=== PATIENT | male | born 1990 | race Caucasian/White ===

== ENCOUNTER 2021-01-01 09:12 | Outpatient (REF) | payer OTHER, SELFPAY | END 2021-01-01 09:13 | disposition home or self-care (01) | LOC: HO.LAB 09:12 | PROVIDERS: Visit Provider Internal Medicine | DX: Z20.822 Contact with and (suspected) exposure to COVID-19 (principal) | CPT/HCPCS: C9803; U0003; U0005 ==

== ENCOUNTER 2021-01-15 12:05 | Outpatient (REF) | payer OTHER, SELFPAY ==
[2021-01-15 12:58] LABS: COVID-19 Test Negative (Negative)
== END 2021-01-15 12:06 | disposition home or self-care (01) ==
LOC: HO.LAB 12:05
PROVIDERS: Visit Provider Internal Medicine
DX: Z20.822 Contact with and (suspected) exposure to COVID-19 (principal)
CPT/HCPCS: 36415; 87635; C9803

== ENCOUNTER 2025-03-03 07:46 | Emergency (ER) | payer SELFPAY ==
[2025-03-03 07:55] VITALS: BP 104/51; PULSE 55; RESP 18; TEMP 36.4; O2SAT 99; BMI 23.6
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
--- NOTE | 2025-03-03 08:41 | ED_ITS ---
HPI - Wound/Laceration General Chief Complaint: Wound/Laceration Stated Complaint: hand lac washing dishes Time Seen by Provider: 03/03/25 08:02 Source: patient Mode of arrival: ambulatory Limitations: no limitations History of Present Illness ED Provider: MINESH TIDWELL PA-C HPI narrative: 34 year old right hand dominant male with no PMHx presenting to the ED today after sustaining a laceration to his right hand this morning [employer] WORK[employer] in ED. He reports cutting his hand on a large piece of glass while washing the fishes. Immediately washed the laceration out. Does not believe there is any retained glass. He was able to control the bleeding and came to the ED for further evaluation. Reports minimal pain. No other complaints/ concerns. He does not believe his tetanus is UTD. Related Data Allergies Allergy/AdvReac Type Severity Reaction Status Date / Time No Known Allergies Allergy Verified 03/03/25 07:56 Review of Systems Review of Systems: Yes all other systems are reviewed and are negative PMFSH Past Medical History Attestation statement: The following information was validated with the patient. Source: old records reviewed and nursing notes reviewed Social History Social History Advance Directives: No Advance Directives Information Provided: No Do you have a plan to hurt others: No Plan Physical Exam Vital Signs: Vital Signs: Last Vital Signs Temp 97.6 F 03/03/25 07:55 Pulse 55 03/03/25 07:55 Resp 18 03/03/25 07:55 BP 104/51 L 03/03/25 07:55 Pulse Ox 99 03/03/25 07:55 O2 Del Method Room Air 03/03/25 07:55 BMI result Body Mass Index 23.6 vital signs stable General: Well appearing, in no acute distress. Skin: Warm, dry, intact. No rashes or lesions. Head: Normocephalic, atraumatic. EENT: Hearing is intact b/l. Conjunctiva clear. Sclera is anicteric. PERRLA. EOM intact. Moist mucous membranes.? Cardiac: Chest wall symmetric. RRR Lungs: Normal respiratory effort without accessory muscle use. CTA bilaterally Ext: +superficial U shaped laceration noted to ulnar aspect of right hand at 5th mcp. No active bleeding. No retained glass. No involvement of deeper structures. Finger strength intact. physician primary care sports medicine strength intact. Ecuqwv-su-[id number] opposition intact. Full ROM intact to right 5th MCP, PIP and DIP. 2+radial and ulnar pulse intact. Neuro: AOx3. Normal speech. Ambulating with steady gait. Course Course Course Narrative: Laceration thoroughly cleansed with saline and iodine. There is no retained gl ass noted to laceration. I am not concerned about a ligament or tendon injury. I obtained verbal consent from patient for local anesthetic and suture repair. He is declining Tdap at this time. Laceration repaired with 4 3-0 sutures following lidocaine injection. see procedure note. patient tolerated well. advised to return for suture removal. Patient has remained stable throughout ED visit today. Discussed worrisome signs and symptoms and when to return to the ED. All questions answered at this time. Patient is agreeable with disposition and stable for discharge. Medications Administered Discontinued Medications Generic Name Dose Route Start Last Admin Trade Name Freq PRN Reason Stop Dose Admin Lidocaine HCl 10 ml 03/03/25 08:45 03/03/25 09:03 Lidocaine Hcl 1 % Mpf 5 Ml Vial INFILTRATI 03/03/25 08:46 5 ml ONCE ONE Administration Medical Decision Making Medical Decision Making MDM Narrative: 34 year old right hand dominant male with no PMHx presenting to the ED today after sustaining a laceration to his right hand this morning [employer] WORK[employer] in ED. Vitals are stable, he is well-appearing and in no acute distress. On exam of right hand, there is a superficial U shaped laceration noted to ulnar aspect of right hand at 5th mcp. No active bleeding. No retained glass. No involvement of deeper structures. Finger strength intact. physician primary care sports medicine strength intact. Xkopda-xn-ibjzj opposition intact. Full ROM intact to right 5th MCP, PIP and DIP. 2+radial and ulnar pulse intact. Differential diagnosis includes abrasion, laceration. Unlikely fracture, retained glass, ligament/tendon injury. Plan for laceration repair and disposition. Patient is declining tdap today. Risks discussed - patient verbalizzes understanding. Differential Diagnosis Differential Diagnoses: The differential diagnosis associated with the presentation includes as above. Admission/Observation not indicated. External Record Review External record reviewed: Inpatient record Prescription Management I considered prescription management with: Pain Medication Social Determinants Patient?s care significantly limited by Social Determinants of Health including: Other Social Determinant of Health Procedures Laceration Laceration 1: Site: hand Side (If applicable): right Size (cm): 2 Description: other (u-shaped) Depth: simple, single layer Local Anesthetic: lidocaine 1% Amount of anesthesia used (mL): 5 Pre-repair: wound explored, irrigated extensively and deep structures intact Skin layer closed with: nylon Size (cm): 3-0 Number of sutures: 4 Technique: simple, interrupted Critical Care Time Critical Care Time Critical Care Time: No Discharge Plan Discharge Clinical Impression: Laceration of right hand Patient Disposition: Home, Self-Care Instructions: Laceration (ED) Additional Instructions: You have been evaluated in the Emergency Department today for a laceration to your right hand. Your laceration was repaired in the ED with 4 sutures.? You are declining tetanus vaccination today. You understand the risks of declining this. Please keep the area surrounding the laceration clean and dry. Do not get the area wet for 24 hours. After 24 hours, you may clean the area with a non-scented soap and pat to dry. Please keep the area out of the sunlight for the next 6 months to help prevent scarring.? If you develop redness or swelling at the site of your laceration or note any discharge/ fluid coming from the laceration, please come back to the ER for a wound check. I recommend you take 600mg ibuprofen every 6 hours or tylenol 650mg every 6 hours as needed for pain. If needed, you can alternate these medications so that you take one medication every 3 hours. For example, at noon take ibuprofen, then at 3pm take tylenol, then at 6pm take ibuprofen. Please follow up with your primary care physician in 7-10 days for suture removal. You may also return to the ER or another urgent care facility for this service. Return to the Emergency Department if you experience discharge from your laceration, redness around your laceration, warmth around your laceration, fever, vomiting, numbness, tingling, or any other concerning symptoms. In the case of an emergency call 911. Referrals: Physician,None [Primary Care Provider, Medical] Print Language: Bhutanese
[2025-03-03] MEDS: Lidocaine HCl 1 % MPF 5 ML VIAL 10 ML INFILTRATI (09:03)
[2025-03-03 10:00] VITALS: BP 104/51; PULSE 55; RESP 18; TEMP 36.4; O2SAT 99
== END 2025-03-03 10:01 | disposition home or self-care (01) ==
PROVIDERS: Emergency Provider Emergency Medicine Emergency Medical Services
DX: S61.411A Laceration without foreign body of right hand, initial encounter (principal); X58.XXXA Exposure to other specified factors, initial encounter; W26.9XXA Contact with unspecified sharp object(s), initial encounter; Y93.G9 Activity, other involving cooking and grilling; Y92.9 Unspecified place or not applicable; Y99.8 Other external cause status
CPT/HCPCS: 12001; 99282; 99284; J2003